=== PATIENT | male | born 1960 | race Caucasian/White ===

== ENCOUNTER 2018-03-30 01:33 | Emergency (ER) | payer OTHER ==
[~2018-03-30] VITALS: Ht 182.9 cm; Wt 97.5 kg
[~2018-03-30 01:33] MED LIST: IBUPROFEN800 M1 PO; PERCOCET 5-3251 EACH PO
--- NOTE | 2018-03-30 02:50 | ED UPPER/LOWER EXTREMITY COMPL ---
History of Present Illness General Chief Complaint: Lower Extremity Problems Stated Complaint: L KNEE PAIN SEEN HERE"FEW DAYS AGO ?TENDONITIS Source: patient Exam Limitations: no limitations Vital Signs & Intake/Output Vital Signs & Intake/Output Vital Signs Date Time Temp Pulse Resp B/P B/P Pulse O2 O2 Flow FiO2 Mean Ox Delivery Rate 03/30 0204 97.2 106 20 160/92 97 Room Air 03/30 0159 Room Air Allergies Coded Allergies: nut - unspecified (Intermediate, HIVES 03/26/18) Reconcile Medications Amoxicillin/Potassium Clav (Augmentin 875-125 Tablet) 875 MG-125 MG TABLET 1 TAB PO BID KNEE INFECTION Ibuprofen 800 MG TABLET 1 TAB PO TID CELLULITIS Ibuprofen 800 MG TABLET 1 TAB PO TID PAIN Ketorolac Tromethamine 10 MG TABLET 1 TAB PO Q6P PRN KNEE PAIN PATIENT RECEIVED iv KETOROLAC IN THE EMERGENCY DEPARTMENT Oxycodone HCl/Acetaminophen (Percocet 5-325 MG Tablet) 5 MG-325 MG TABLET 1-2 TAB PO Q6P PRN pain Oxycodone HCl/Acetaminophen (Percocet 5-325 MG Tablet) 5 MG-325 MG TABLET 1 TAB PO BID KNEE PAIN Triage Note: TRIAGE: PATIENT TO ER FROM HOME W/ SPOUSE REPORTS +L KNEE PAIN, SEEN HERE FEW DAYS AGO WHEN HE WAS SENT IN TO R/O SEPTIC KNEE THOUGH REPORTS DX W/ ?TENDONITIS. NOTED W/ +SWELLING TO L KNEE S/P REMOVING HIS NOE WRAP. TAKING IBUPROFEN AND "PAIN PILL" W/O RELIEF. HAS APPT W/ SLAUGHTER ON MONDAY. Triage Nurses Notes Reviewed? yes Onset: Gradual Duration: day(s):, constant, continues in ED, getting worse Severity: severe HPI: Patient presents for evaluation of worsening left knee pain and swelling after being seen a few days ago and diagnosed with bursitis. Has been taking ibuprofen and placing an Noe wrap without much improvement. Past History Travel History Traveled to [place] past 21 day No Medical History Any Pertinent Medical History? 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 No Review of Systems Review of Systems Constitutional: Reports: no symptoms. EENTM: Reports: no symptoms. Respiratory: Reports: no symptoms. Cardiovascular: Reports: no symptoms. Gastrointestinal/Abdominal: Reports: no symptoms. Genitourinary: Reports: no symptoms. Musculoskeletal: Reports: see HPI. Skin: Reports: see HPI. Neurological/Psychological: Reports: no symptoms. Hematologic/Endocrine: Reports: no symptoms. Immunological: Reports: no symptoms. All Other Systems: Reviewed and Negative Physical Exam Physical Exam General Appearance: see below Comments: Gen.: Well-nourished, well-developed, no acute respiratory distress. Head: Normocephalic, atraumatic. Eyes: Normal inspection bilaterally Ears: Normal inspection bilaterally Nose: Normal inspection Throat/mouth : Moist mucosa Neck: Supple, full range of motion, no goiter Heart: Regular rate and rhythm Lungs: Quiet respirations Back: Normal range of motion Extremities: Left knee: Effusion present with lateral erythema and tenderness. Neurologic: Cranial nerves grossly intact, speech is clear Skin: warm and dry Psychiatric: Calm, cooperative, no apparent delusions or hallucinations Progress Differential Diagnosis: SEPTIC BURSITIS, SEPTIC ARTHRITIS, CELLULITIS, ABSCESS Plan of Care: Orders Procedure Date/time Status Durable Medical Equipment 03/30 0550 Active CBC WITHOUT DIFFERENTIAL 03/30 0249 Complete BASIC METABOLIC PANEL 03/30 0249 Complete Current Medications Sig/Adela Start time Last Medication Dose Stop Time Status Admin Ampicillin Sodium/ 3,000 MG ONCE ONE 03/30 0600 AC Sulbactam Sodium 03/30 0629 (Unasyn) Sodium Chloride 100 ML (Normal Saline 0.9%) Laboratory Tests 03/30/18 0342: Anion Gap 16, Estimated GFR > 60, BUN/Creatinine Ratio 15.0, Glucose 235 H, Calcium 9.8, CBC w Diff MAN DIFF ORDERED, RBC 5.03, MCV 86.5, MCH 29.7, MCHC 34.4, RDW 12.5, MPV 8.0, Gran % 73.7, Lymphocytes % 15.3 L, Monocytes % 9.8 H, Eosinophils % 1.0, Basophils % 0.2, Absolute Granulocytes 12.7 H, Segmented Neutrophils 67, Band Neutrophils 1, Absolute Lymphocytes 2.6, Lymphocytes 17 L, Monocytes 11 H, Absolute Monocytes 1.7 H, Eosinophils 3, Absolute Eosinophils 0.2, Basophils 1, Absolute Basophils 0, Platelet Estimate INCREASED, Polychromasia 1+, Ovalocytes FEW, Stomatocytes FEW, Fld Total RBCs Counted 100 Diagnostic Imaging: Discussed w/RAD: CT Scan. Radiology Impression: PATIENT: ULYSSES MCCULLOUGH PRESENT AGE: 57 PATIENT ACCOUNT NO: [id number] : 62 LOCATION: [facility] ORDERING PHYSICIAN: Arnie Pandey MD SERVICE DATE: 03/30/18 EXAM TYPE: CAT - CT LOWER EXT W IV CONTRAST EXAMINATION: CT LOWER EXTREMITY WITH CONTRAST, LEFT CLINICAL INFORMATION: Left knee swelling and lateral erythema COMPARISON: Radiographs 03/26/2018 TECHNIQUE: 95 mL Optiray 320 intravenous contrast was utilized. Multidetector helical imaging was performed through the left knee. Coronal and sagittal reformatted images were created. DLP: 599.55 mGy-cm FINDINGS: Osseous alignment is anatomic. No evidence of acute fracture. Joint spaces are relatively well-preserved. There is mild patellar spurring at the insertion of the quadriceps tendon. There is a [id number] joint effusion. Subcutaneous edema is noted along the anterior and lateral aspect of the knee with no discrete soft tissue fluid collection is identified. Edema may also involve the deeper soft tissues along the lateral aspect of the knee. There is scattered arterial calcification, with included visualized arteries remaining patent. IMPRESSION: 1. Subcutaneous edema along the anterior and lateral aspects of the knee which may reflect a bursitis of nonspecific etiology; septic bursitis cannot be excluded. Edema in the lateral aspect of the knee may also involve the deeper soft tissues, and extent could be more fully evaluated with MRI. 2. Small to moderate joint effusion; this could be infectious in etiology in the proper clinical setting. DICTATED BY: Luis Perea MD DATE/TIME DICTATED:03/30/18448 USABILITY STRATEGIST:ARISTIDES DATE/TIME TRANSCRIBED:448 CONFIDENTIAL, DO NOT COPY WITHOUT APPROPRIATE AUTHORIZATION. < Electronically signed in Other Vendor System> SIGNED BY: Luis Perea MD 03/30/18 0510 Departure Departure Disposition: HOME OR SELF CARE Condition: Stable Clinical Impression Primary Impression: Septic bursitis Secondary Impressions: Cellulitis of left knee Referrals: Hayder AGUIRRE,Ronnie Lopes (PCP/Family) Additional Instructions: Augmentin as prescribed. Ketorolac as prescribed for pain. You may add Percocet if necessary. Use the knee immobilizer when active. Follow-up with Dr. Slaughter on Monday for reevaluation. Return if any concerns or sudden worsening. Please note that there might be incidental findings in your evaluation that are unrelated to the current emergency department visit. Please notify your primary care doctor about this emergency department visit in order to obtain and review all of the testing performed so that these incidental findings can be monitored as needed. If you had an x-ray performed, please understand that some fractures or other findings may not be seen on the initial set of x-rays. If your symptoms persist you might need a repeat set of x-rays to check for such a fracture. If you had a laceration evaluated, please understand that foreign bodies such as glass or wood may not be visible to the naked eye or on plain x-rays. If the wound becomes red, swollen, increasingly more painful or if there is any drainage from the wound, please have it reevaluated by a physician for the possibility of a retained foreign body. If you're unable to follow up as outlined in the discharge instructions please return to the emergency department. Thank you for choosing the [facility] Emergency Department for your care. It was a pleasure to serve you today. Arnie Pandey M.D. [facility] Departure Forms: Customer Survey General Discharge Information Prescriptions: Current Visit Scripts Ketorolac Tromethamine 1 TAB PO Q6P PRN KNEE PAIN #16 TAB PATIENT RECEIVED iv KETOROLAC IN THE EMERGENCY DEPARTMENT Oxycodone HCl/Acetaminophen (Percocet 5-325 MG Tablet) 1-2 TAB PO Q6P PRN pain #16 TAB Amoxicillin/Potassium Clav (Augmentin 875-125 Tablet) 1 TAB PO BID #20 TAB
[2018-03-30 03:53] LABS: ABSOLUTE BASOPHIL COUNT 0 /CUMM (0.0-0.2); ABSOLUTE EOSINOPHIL COUNT 0.2 /CUMM (0.0-0.7); ABSOLUTE GRANULOCYTE CT 12.7 /CUMM (1.4-6.5); ABSOLUTE LYMPH COUNT 2.6 /CUMM (1.2-3.4); ABSOLUTE MONOCYTE COUNT 1.7 /CUMM (0.10-0.60); BASOPHIL % 0.2 % (0.0-2.0); GRANULOCYTE % 73.7 % (42.2-75.2); HEMATOCRIT 43.5 % (42-52); MEAN CORPUSCULAR HGB 29.7 PG (27.0-31.0); MEAN CORPUSCULAR HGB CONC 34.4 G/DL (33.0-37.0); MEAN CORPUSCULAR VOLUME 86.5 FL (80.0-94.0); PLATELET COUNT 422 /CUMM (130-400); RBC DISTRIBUTION WIDTH 12.5 % (11.5-14.5); RED BLOOD CELL CT 5.03 /CUMM (4.70-6.10); WHITE BLOOD CELL COUNT 17.2 /CUMM (4.8-10.8)
--- NOTE | 2018-03-30 05:10 | CT SCAN REPORT ---
EXAMINATION: CT LOWER EXTREMITY WITH CONTRAST, LEFT CLINICAL INFORMATION: Left knee swelling and lateral erythema COMPARISON: Radiographs 03/26/2018 TECHNIQUE: 95 mL Optiray 320 intravenous contrast was utilized. Multidetector helical imaging was performed through the left knee. Coronal and sagittal reformatted images were created. DLP: 599.55 mGy-cm FINDINGS: Osseous alignment is anatomic. No evidence of acute fracture. Joint spaces are relatively well-preserved. There is mild patellar spurring at the insertion of the quadriceps tendon. There is a [id number] joint effusion. Subcutaneous edema is noted along the anterior and lateral aspect of the knee with no discrete soft tissue fluid collection is identified. Edema may also involve the deeper soft tissues along the lateral aspect of the knee. There is scattered arterial calcification, with included visualized arteries remaining patent. IMPRESSION: 1. Subcutaneous edema along the anterior and lateral aspects of the knee which may reflect a bursitis of nonspecific etiology; septic bursitis cannot be excluded. Edema in the lateral aspect of the knee may also involve the deeper soft tissues, and extent could be more fully evaluated with MRI. 2. Small to moderate joint effusion; this could be infectious in etiology in the proper clinical setting.
[2018-03-30] MEDS ORDERED: KETOROLAC TROME10 M1 PO (05:53)
[2018-03-30] MEDS ORDERED: PERCOCET 5-3251 EACH PO (05:53)
[2018-03-30] MEDS ORDERED: AUGMENTIN 875-1 EACH PO (05:53)
[2018-03-30 06:12] VITALS: BP 135/81
== END 2018-03-30 06:30 ==
LOC: ERH 01:33
PROVIDERS: Emergency Medicine
DX: M70.52 Other bursitis of knee, left knee (principal); M00.9 Pyogenic arthritis, unspecified; L03.116 Cellulitis of left lower limb
CPT/HCPCS: 96374; 96375; J1885